=== PATIENT | female | born 1985 | race Caucasian/White ===

== ENCOUNTER 2018-09-05 10:59 | Inpatient (IN) | payer OTHER ==
[2018-09-09] MEDS ORDERED: METHYLERGONOVINE 0.2 MG/ML 1 ML AMP IM PRN (06:07)
[2018-09-09] MEDS ORDERED: TERBUTALINE 1 MG/ML VIAL SQ PRN (06:07)
[2018-09-09] MEDS ORDERED: OXYTOCIN 30 UNITS/500 ML NS 30 UNIT in SALINE 1 500ML.BAG IV SCH (06:07)
[2018-09-09] MEDS ORDERED: OXYTOCIN 10 UNIT/ML 1 ML VIAL IM PRN (06:07)
[2018-09-09] MEDS ORDERED: CARBOPROST TROMETHAMINE 250 MCG/ML 1 ML AMP IM PRN (06:07)
[2018-09-09] MEDS ORDERED: LIDOCAINE 0.5% (PF) 5 MG/ML (50 ML SDV) SQ PRN (06:07)
[2018-09-09 06:12] VITALS: RESP 16; BMI 60.5
[2018-09-09] MEDS: LACTATED RINGERS 1,000 ML IV SCH ×2 (06:17→09:13)
--- NOTE | 2018-09-09 06:39 | P.HPOB ---
History of Present Illness H&P Date: 09/09/18 Chief Complaint: Postdates induction This patient is a pleasant 32-year-old 3 para 2 female estimated date of confinement 09/05/2013 estimated gestational age 40-4/7 weeks gestation who is admitted to labor and delivery for postdates induction of labor. Patient's pr enatal care has been uncomplicated she is now requesting delivery due to going postdates. Review of Systems Genitourinary: Reports Menstruation: Reports amenorrhea Past Medical History Past Medical History: No Reported History History of Any Multi-Drug Resistant Organisms: None Reported Past Surgical History: Tonsillectomy Past Anesthesia/Blood Transfusion Reactions: No Reported Reaction Past Psychological History: No Psychological Hx Reported Smoking Status: Never smoker Past Alcohol Use History: None Reported Past Drug Use History: None Reported - Past Family History Mother Family Medical History: No Reported History Medications and Allergies Home Medications Medication Instructions Recorded Confirmed Type Pnv,Calcium 72/Iron/Folic Acid 1 each PO DAILY 07/09/15 09/09/18 History [ Plus Tablet] Allergies Allergy/AdvReac Type Severity Reaction Status Date / Time penicillin G Allergy Unknown Verified 09/09/18 06:07 Childhood Exam Vital Signs Temp Pulse Resp BP Pulse Ox 09/09/18 06:05 97.9 F 84 16 134/78 99 Intake and Output 09/08/18 09/08/18 09/09/18 14:59 22:59 06:59 Other: Weight 77.111 kg - OBG Physical Exam Abdomen: bowel sounds normal, no diffuse tenderness, no bruit present, no guardi ng noted, no hepatomegaly, no splenomegaly, no mass Vulva: both: normal Vagina: normal moisture, no discharge Cervix: no lesion (Cervix is 2-3 cm dilated 80% effaced -2 station), no discharge Uterus: enlarged (Fundal height is consistent with gestational age) Results blood work shows she is O positive, rubella immune, RPR nonreactive, hepatitis B negative, HIV nonreactive, Glucola was normal, group B strep was negative, ultrasounds have been normal. Assessment and Plan Assessment: This is a pleasant 32-year-old 3 para 2 female 40-4/7 weeks gestation who is admitted to labor and delivery for requested postdates induction of labor. Plan is induction of labor and anticipate vaginal delivery. Patient has requested to restart her Lexapro post delivery. (1) Postmaturity , 40-42 weeks gestation Current Visit: Yes Status: Acute Code(s): O48.0 - POST-TERM SNOMED Code(s): 81708952114756
[2018-09-09 06:55] LABS: Basophils # (A) 0.1 k/uL (0-0.2); Basophils % (A) 1 %; Eosinophils # (A) 0.2 k/uL (0-0.7); Eosinophils % (A) 2 %; HCT 33.6 % (34.0-46.0); HGB 11.4 gm/dL (11.4-16.0); Lymphocytes # (A) 3.2 k/uL (1.0-4.8); Lymphocytes % (A) 28 %; MCH 30.9 pg (25.0-35.0); MCV 90.8 fL (80.0-100.0); Mean Platelet Volume 7.6; Monocytes # (A) 0.7 k/uL (0-1.0); Monocytes % (A) 6 %; Neutrophils # (A) 7.3 k/uL (1.3-7.7); Neutrophils % (A) 63 %; Platelet Count 224 k/uL (150-450); RDW 14.4 % (11.5-15.5); WBC 11.7 k/uL (3.8-10.6)
[2018-09-09] MEDS ORDERED: ESCITALOPRAM 20 MG TAB PO SCH (09:00)
[2018-09-09] MEDS ORDERED: fentaNYL (PF) 50 MCG/ML 5 ML AMP ONE (09:34)
[2018-09-09] MEDS ORDERED: SODIUM CHLORIDE 0.9% 100 ML BAG ONE (09:34)
[2018-09-09] MEDS ORDERED: ROPIVACAINE 5MG/ML 20ML VIAL ONE (09:34)
[2018-09-09] MEDS ORDERED: LANOLIN CREAM 5 GM TUBE TOPICAL PRN (10:23)
[2018-09-09] MEDS ORDERED: HYDROCORTISONE 2.5% RECTAL CREAM 30 GM TUBE RECTAL PRN (10:23)
[2018-09-09] MEDS ORDERED: BISACODYL 10 MG SUPP RECTAL PRN (10:23)
[2018-09-09] MEDS ORDERED: ACETAMINOPHEN TAB 325 MG TAB PO PRN (10:23)
[2018-09-09] MEDS ORDERED: OXYTOCIN 20 UNITS/1000 ML NS 1,000 ML IV SCH (10:23)
[2018-09-09] MEDS ORDERED: WITCH HAZEL 1 EACH MED..PAD TOPICAL PRN (10:23)
[2018-09-09] MEDS ORDERED: diphenhydrAMINE 25 MG CAP PO PRN (10:23)
[2018-09-09] MEDS ORDERED: diphenhydrAMINE 50 MG/ML 1 ML VIAL IVP PRN (10:23)
[2018-09-09] MEDS ORDERED: BENZOCAINE/MENTHOL SPRAY 1 GM/SPRAY AEROSOL TOPICAL PRN (10:23)
[2018-09-09] MEDS ORDERED: ZOLPIDEM 5 MG TAB PO PRN (10:23)
[2018-09-09] MEDS ORDERED: SIMETHICONE 80 MG CHEWABLE PO PRN (10:23)
[2018-09-09] MEDS: ESCITALOPRAM 20 MG TAB PO SCH ×2 (11:53→12:51)
[2018-09-09] MEDS: SENNOSIDES-DOCUSATE SODIUM 1 EACH TAB PO SCH ×3 (11:55→23:33)
--- NOTE | 2018-09-09 12:47 | P.PROBDLV ---
Vaginal Delivery Note - . Vaginal Delivery Note: Normal vaginal delivery viable male infant Apgars 9 and 9 delivery time was 0952 hrs. Please see dictated H&P for intimate details of this patient's admission. Brief summary this is a pleasant 32-year-old 3 para 2 female 40-4/7 weeks gestation admitted to labor and delivery for postdates induction of labor. On admission patient is proximally 3 cm dilated she is artificial rupture membranes for clear fluid. Labor is induced with Pitocin per protocol. Labor progresses and she does get an epidural for pain control. Patient quickly thereafter gets to complete pushes the head to the perineum. Posterior perineum is supported we have controlled delivery of the infant's head over the intact perineum. Mouth and nares are bulb suctioned. There is a nuchal cord which is easily reduced. We then have deliver the anterior and posterior shoulder and rest this 's body. Is a vigorous viable male infant Apgars are 9 and 9 delivery time was 0947 hours. After delivery of the the umbilical cord is doubly clamped and cut appears to be trivascular. Placenta is then spontaneously delivered intact. Estimated blood loss is 100 mL. There are no lacerations and no repair. All counts are correct 3.
[2018-09-09] MEDS: IBUPROFEN 600 MG TAB PO PRN ×2 (12:51→23:34)
--- NOTE | 2018-09-10 06:31 | P.PNOBGVD ---
Subjective - Subjective Patient reports: Reports appetite normal, Reports voiding normally, Reports pain well controlled, Reports ambulating normally : doing well Objective - Latest Vital Signs Latest vital signs: Vital Signs Temp Pulse Resp BP 09/10/18 00:00 98.8 F 67 16 140/82 09/09/18 20:00 98.3 F 72 16 122/72 09/09/18 16:00 98.2 F 68 16 135/73 09/09/18 12:00 98.5 F 79 16 126/61 09/09/18 11:30 85 16 117/81 09/09/18 11:00 68 16 98/53 09/09/18 10:45 67 16 103/59 09/09/18 10:30 70 16 101/54 09/09/18 10:15 75 16 104/54 09/09/18 10:00 82 16 104/53 Intake and Output 09/09/18 09/09/18 09/10/18 14:59 22:59 06:59 Intake Total 2999.5 Balance 2999.5 Intake: IV 1000 Oxytocin 20 Units/1000 ml 1000 Ns 1,000 ml @ Per Protocol IV .Q0M TETE Rx#: [id number] Intake, IV Titration 1999.5 Amount Lactated Ringers 1,000 ml 1500 @ 125 mls/hr IV .Q8H TETE Rx#:[id number] Oxytocin 20 Units/1000 ml 499.5 Ns 1,000 ml @ Per Protocol IV .Q0M TETE Rx#: [id number] Other: # Voids 1 1 1 - Exam Lungs: bilateral: normal Chest: Normal S1, Normal S2 Extremities: Present: normal Abdomen: Present: normal appearance, soft Uterus: Present: normal, firm - Labs Labs: Abnormal Lab Results - Last 24 Hours (Table) 09/09/18 Range/Units 06:20 WBC 11.7 H (3.8-10.6) k/uL RBC 3.70 L (3.80-5.40) m/uL Hct 33.6 L (34.0-46.0) % Assessment and Plan Assessment: day #1. Patient is resting without complaints. Vital signs are stable she's afebrile. Uterus is firm nontender and she is having normal lochia. Patient would like to go home today. Plan is to continue routine care discharge home later today (1) Postmaturity , 40-42 weeks gestation Current Visit: Yes Status: Acute Code(s): O48.0 - POST-TERM SNOMED Code(s): 52416831753971
--- NOTE | 2018-09-10 06:38 | P.DS ---
Providers Date of admission: 09/09/18 06:01 Expected date of discharge: 09/10/18 Attending physician: Boo Squires Primary care physician: Stated None - Discharge Diagnosis(es) (1) Postmaturity , 40-42 weeks gestation Current Visit: Yes Status: Acute Hospital Course: Please see dictated H&P for intimate details of this patient's admission. Brief summary this is a pleasant 32-year-old 3 para 2 female 40-4/7 weeks gestation admitted to labor and delivery for elective induction of labor postdates. Patient is admitted she is, K induction of labor quickly goes on have a vaginal delivery viable male . Please see dictated delivery note. day #1 this patient is without complaints wishes to go home patient's felt stable for discharge home follow up with me in 6 weeks Procedures: Normal vaginal delivery. Patient Condition at Discharge: Good Plan - Discharge Summary New Discharge Prescriptions: No Action Pnv,Calcium 72/Iron/Folic Acid [ Plus Tablet] 1 each PO DAILY Discharge Medication List Pnv,Calcium 72/Iron/Folic Acid [ Plus Tablet] 1 each PO DAILY 07/09/15 [History] Follow up Appointment(s)/Referral(s): Boo Squires MD [STAFF PHYSICIAN] - 10/19/18 9:15 am Patient Instructions/Handouts: Vaginal Delivery (DC) Activity/Diet/Wound Care/Special Instructions: No intercourse or anything per vagina for 6 weeks. Please call if any fever, chills, excessive vaginal bleeding and/or abdominal pain. Discharge Disposition: HOME SELF-CARE
[2018-09-10 08:17] VITALS: BP 130/88; PULSE 76; TEMP 98.6
[2018-09-10] MEDS: SENNOSIDES-DOCUSATE SODIUM 1 EACH TAB PO SCH (08:19)
[2018-09-10] MEDS: ESCITALOPRAM 20 MG TAB PO SCH (09:05)
== END 2018-09-10 12:20 | disposition home or self-care (01) | DRG 807 ==
LOC: 4FBP 09-09 06:01
PROVIDERS: ADMIT Obstetrics & Gynecology; ATTEND Obstetrics & Gynecology
PROC: 10E0XZZ Delivery of Products of Conception, External Approach (ICD-10-PCS; principal; 2018-09-09)
PROC: 10907ZC Drainage of Amniotic Fluid, Therapeutic from Products of Conception, Via Natural or Artificial Opening (ICD-10-PCS; 2018-09-09)
PROC: 3E033VJ Introduction of Other Hormone into Peripheral Vein, Percutaneous Approach (ICD-10-PCS; 2018-09-09)
PROC: 00HU33Z Insertion of Infusion Device into Spinal Canal, Percutaneous Approach (ICD-10-PCS; 2018-09-09)
PROC: 3E0R3BZ Introduction of Anesthetic Agent into Spinal Canal, Percutaneous Approach (ICD-10-PCS; 2018-09-09)
DX: O48.0 Post-term pregnancy (principal); Z37.0 Single live birth; O69.81X0 Labor and delivery complicated by cord around neck, without compression, not applicable or unspecified; Z3A.40 40 weeks gestation of pregnancy; Z88.0 Allergy status to penicillin
CPT/HCPCS: 85025; 86850; 86900; 86901

== ENCOUNTER 2019-04-05 17:32 | Emergency (ER) | payer OTHER ==
[2019-04-05 17:37] VITALS: BP 143/85; PULSE 78; RESP 16; TEMP 98.7
[2019-04-05] MEDS ORDERED: LIDOCAINE 1% INJ 10MG/ML (20 ML MDV) SQ ONE (17:40)
[2019-04-05] MEDS ORDERED: DIPH,PERTUS(ACELL)TETVAC-LF 0.5 ML VIAL IM ONE (17:40)
--- NOTE | 2019-04-05 18:01 | ED ---
Wound/Laceration HPI - General Chief Complaint: Wound/Laceration Stated Complaint: Finger laceration Time Seen by Provider: 04/05/19 17:38 Source: patient, RN notes reviewed Mode of arrival: ambulatory Limitations: no limitations - History of Present Illness Initial Comments: 33-year-old female presents emergency Department chief complaint of left hand l aceration. Patient states she was cutting frozen phillip and states that she puncture, lacerated her left hand. Patient is unsure when her last tetanus was. She has full range of motion she states her some numbness to her index finger. Patient is right-hand dominant. Patient offers no other complaints. - Related Data Home Medications Medication Instructions Recorded Confirmed Pnv,Calcium 72/Iron/Folic Acid 1 each PO DAILY 07/09/15 09/09/18 [ Plus Tablet] Allergies Allergy/AdvReac Type Severity Reaction Status Date / Time penicillin G Allergy Unknown Verified 04/05/19 17:37 Childhood Review of Systems ROS Statement: Those systems with pertinent positive or pertinent negative responses have been documented in the HPI. ROS Other: All systems not noted in ROS Statement are negative. Past Medical History Past Medical History: No Reported History History of Any Multi-Drug Resistant Organisms: None Reported Past Surgical History: Tonsillectomy Past Anesthesia/Blood Transfusion Reactions: No Reported Reaction Past Psychological History: No Psychological Hx Reported Smoking Status: Never smoker Past Alcohol Use History: None Reported Past Drug Use History: None Reported - Past Family History Mother Family Medical History: No Reported History General Exam Limitations: no limitations General appearance: alert, in no apparent distress Head exam: Present: atraumatic, normocephalic, normal inspection Neck exam: Present: normal inspection. Absent: tenderness, meningismus, lymphadenopathy Respiratory exam: Present: normal lung sounds bilaterally. Absent: respiratory distress, wheezes, rales, rhonchi, stridor Cardiovascular Exam: Present: regular rate, normal rhythm, normal heart sounds. Absent: systolic murmur, diastolic murmur, rubs, gallop, clicks Extremities exam: Present: other (Left hand there is a 1 cm laceration between the first and second digit on the palmar aspect patient's full range of motion of all digits full-strength neurovascular intact) Course Vital Signs 04/05/19 17:34 Temperature 98.7 F Pulse Rate 78 Respiratory 16 Rate Blood Pressure 143/85 O2 Sat by Pulse 99 Oximetry Procedures - Laceration Laceration #1 Consent Obtained: verbal consent Indication: laceration Site: hand (Left hand) Size (cm): 1 Description: linear Depth: simple, single layer Anesthetic Used: lidocaine 1%, without epi Anesthesia Technique: local infiltration Amount (mls): 3 Pre-repair: wound explored, irrigated extensively, deep structures intact Type of Sutures: nylon Size of Sutures: 4-0 Number of Sutures: 2 Technique: simple, interrupted Complications: pain Patient Tolerated Procedure: well, no complications Medical Decision Making - Medical Decision Making X-rays unremarkable. Patient's laceration was closed with no comp patients return parameters were given, wound care was given. Disposition Clinical Impression: Laceration of left hand Disposition: HOME SELF-CARE Condition: Stable Instructions (If sedation given, give patient instructions): Care For Your Stitches (ED), Laceration (ED) Additional Instructions: Have sutures removed in 10 days. Please return to the Emergency Department if symptoms worsen or any other concerns. Is patient prescribed a controlled substance at d/c from ED?: No Referrals: Reji Tyler MD [Primary Care Provider] - 1-2 days Time of Disposition: 18:00
--- NOTE | 2019-04-05 18:42 | XR ---
EXAMINATION TYPE: XR hand complete LT DATE OF EXAM: 04/05/2019 COMPARISON: NONE HISTORY: Laceration TECHNIQUE: 3 views FINDINGS: Metacarpals appear intact. I see no fracture nor dislocation. There is no sign of a foreign body. There are tiny soft tissue air bubbles overlying the second and third metacarpals. This is con sistent with laceration deformity. IMPRESSION: Soft tissue air bubbles seen. No fracture seen. No foreign body.
== END 2019-04-05 18:05 | disposition home or self-care (01) ==
LOC: EC 17:32
DX: S61.412A Laceration without foreign body of left hand, initial encounter (principal); Z88.0 Allergy status to penicillin; Z23 Encounter for immunization; W26.0XXA Contact with knife, initial encounter; Y93.G9 Activity, other involving cooking and grilling; Y92.009 Unspecified place in unspecified non-institutional (private) residence as the place of occurrence of the external cause
CPT/HCPCS: 73130; 90715; 99283; 12001; 90471; J2001

== ENCOUNTER 2021-09-11 06:14 | Day surgery (SDC) | payer OTHER ==
--- NOTE | 2021-09-10 07:29 | P.HPOB ---
History of Present Illness H&P Date: 09/10/21 Chief Complaint: High-grade cervical dysplasia This patient is a pleasant 35-year-old 3 para 3 female who had an abnormal Pap smear and subsequently had a colposcopy done on July 23 that showed high-grade dysplasia (BREEZY-3) of the ectocervix and BREEZY-1 of the endocervix. I recommended patient proceed with LEEP excision of this area. Patient had a previous ASCUS Pap smear in 2500 normal Pap smear in 2018. Review of Systems Genitourinary: Reports as per HPI Past Medical History Past Medical History: No Reported History History of Any Multi-Drug Resistant Organisms: None Reported Past Surgical History: Tonsillectomy Past Anesthesia/Blood Transfusion Reactions: No Reported Reaction Past Psychological History: No Psychological Hx Reported Past Alcohol Use History: None Reported Past Drug Use History: None Reported - Past Family History Mother Family Medical History: No Reported History Medications and Allergies Home Medications Medication Instructions Recorded Confirmed Type Pnv,Calcium 72/Iron/Folic Acid 1 each PO DAILY 07/09/15 09/09/18 History [ Plus Tablet] Allergies Allergy/AdvReac Type Severity Reaction Status Date / Time penicillin G Allergy Unknown Verified 04/05/19 17:37 Childhood Exam - OBG Physical Exam Abdomen: bowel sounds normal, no diffuse tenderness, no bruit present, no guarding noted, no hepatomegaly, no splenomegaly, no mass Vulva: both: normal Vagina: normal moisture, no discharge Cervix: no lesion, no discharge Uterus: normal size, normal contour Results BREEZY 3 (high-grade dysplasia) on 2 ectocervical biopsies and BREEZY-1 of the endocervix Assessment and Plan Assessment: This is a pleasant 35-year-old 3 para 3 female with 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 I did discuss with the patient this surgery and risks including risks of infection, bleeding, possible cervical incompetence in future loss. All the patient's questions have been answered and a written consent is obtained. (1) High grade squamous intraepithelial cervical dysplasia Status: Acute Code(s): R87.613 - HIGH GRADE INTREPITH LESION CYTO SMR CRVX (HGSIL) SNOMED Code(s): 497405049
[~2021-09-11 06:14] MED LIST: DEXAMETHASONE SOD PHOSPHATE 4 MG/ML 1 ML VIAL IV ONE; LACTATED RINGERS 1,000 ML IV SCH; LIDOCAINE 1% (10MG/ML) FOR IV START INTRADERMA PRN; ONDANSETRON 4 MG/2 ML VIAL IVP ONE; Pre Op ABX Message 1 EACH MISC MISCELLANE ONE
[2021-09-11] MEDS ORDERED: HYDROmorphone 0.5 MG/0.5 ML SYRINGE IVP PRN (07:00)
[2021-09-11] MEDS ORDERED: PROPOFOL 10 MG/ML 20 ML VIAL IV ONE (07:23)
[2021-09-11] MEDS ORDERED: LIDOCAINE 1% INJ 10MG/ML (20 ML MDV) ONE (07:23)
[2021-09-11] MEDS ORDERED: fentaNYL (PF) 50 MCG/ML 2 ML AMP ONE (07:23)
[2021-09-11] MEDS ORDERED: MIDAZOLAM 2 MG/2 ML VIAL ONE (07:23)
[2021-09-11] MEDS ORDERED: KETOROLAC 15 MG/ML 1 ML VIAL ONE (07:23)
[2021-09-11] MEDS ORDERED: FERRIC SUBSULFATE (MONSELS) JAR TOPICAL ONE ×2 (07:27→07:40)
[2021-09-11] MEDS ORDERED: IODINE/POTASS IOD (LUGOLS) BOTTLE TOPICAL ONE ×2 (07:28→07:40)
--- NOTE | 2021-09-11 07:59 | P.OP ---
Date of Procedure: 09/11/21 Preoperative Diagnosis: High-grade cervical dysplasia Postoperative Diagnosis: Same Procedure(s) Performed: Colposcopy with LEEP excision ectocervix and endocervix Anesthesia: other (LMA) Surgeon: Boo Squires Estimated Blood Loss (ml): 10 Urine output (ml): 50 Pathology: other (Ectocervix and endocervix) Condition: stable Disposition: PACU Indications for Procedure: Please see dictated H&P for intimate details of this patient's admission. Brief summary this is a pleasant 35-year-old 3 para 3 female presented to my office for yearly Pap smear found to have high-grade cervical dysplasia documented on colposcopy. Patient now presents for LEEP excision of this area. Patient does understand the surgery and risks including risks of infection, bleeding, possible cervical incompetence in future loss. All the patient's questions are answered written consent is obtained. Operative Findings: This patient had acetowhite changes as demarcated the office of the ectocervix Description of Procedure: This patient is taken to the operating room where she is laid in the supine position. She subsequently undergoes general anesthesia without incident. With an adequate level of anesthesia she's placed in the dorsal lithotomy position. She has a vaginal perineal prep and drape. The laser speculum was placed into the vagina and the cervix is visualized. Colposcopy is done with Lugol's solution. With this done the bladder was drained for 50 mL of urine. Using a large LEEP loop and 60/70 cutting cautery setting I make one pass remove the entire ectocervix. I then take the small LEEP loop and remove a portion of the endocervix. With this done cauterization is then done of the endocervical bed and the ectocervical margin. Excellent hemostasis is noted. Additional h emostasis is guaranteed with Monsel solution. This point the procedure is ended. The speculum was removed. All counts are correct 3. There are no complications. Patient is awakened from anesthesia and taken recovery room satisfactory condition.
[2021-09-11 08:08] VITALS: TEMP 96.9
[2021-09-11 09:20] VITALS: BP 111/63; PULSE 62; RESP 16
== END 2021-09-11 10:01 | disposition home or self-care (01) ==
LOC: OR 06:14
PROVIDERS: ATTEND Obstetrics & Gynecology
DX: R87.613 High grade squamous intraepithelial lesion on cytologic smear of cervix (HGSIL) (principal); Z98.890 Other specified postprocedural states; Z88.0 Allergy status to penicillin; F41.9 Anxiety disorder, unspecified; F32.A Depression, unspecified; Z79.1 Long term (current) use of non-steroidal anti-inflammatories (NSAID); Z79.899 Other long term (current) drug therapy
CPT/HCPCS: 57461; 81025; 88305; 88307; J2250; J1100; J2405; J2001; J3010; J1885; J2704